=== PATIENT | male | born 1990 | race African-American/Black ===

== ENCOUNTER 2019-11-01 00:36 | Emergency (ER) | payer SELFPAY ==
[~2019-11-01] VITALS: Ht 185.4 cm; Wt 99.8 kg
[2019-11-01 01:30] VITALS: BP 113/72
[2019-11-01] MEDS ORDERED: TDAP [DIPH/PERTUSSIS/TET] 0.5 ML VIAL IM ONE ×2 (01:55→02:00)
--- NOTE | 2019-11-01 02:27 | NUR ---
Patient discharged to home in stable condition. Rx and Written and verbal after care instructions given. Patient verbalizes understanding of instruction.
== END 2019-11-01 02:28 | disposition home or self-care (01) ==
LOC: ER 00:47
DX: S50.811A Abrasion of right forearm, initial encounter (principal); W54.0XXA Bitten by dog, initial encounter; Y93.89 Activity, other specified; Y92.89 Other specified places as the place of occurrence of the external cause; Y99.8 Other external cause status
CPT/HCPCS: 90715